=== PATIENT | male | born 1965 | race Caucasian/White ===

== ENCOUNTER 2017-07-23 12:10 | Day surgery (SDC) | payer OTHER ==
[2017-07-23] MEDS: NS 1,000 ML IV (13:04)
[2017-07-23] MEDS ORDERED: PROPOFOL 200 MG/20 ML VIAL As Ordered ×2 (13:05→13:19)
[2017-07-23] MEDS ORDERED: LIDOCAINE 2% INJ 100 MG/5 ML SDV (FOR ANES.) As Ordered (13:05)
== END 2017-07-23 13:53 | disposition home or self-care (01) ==
LOC: M OPP 12:10
DX: R11.2 Nausea with vomiting, unspecified (principal); K22.8 Other specified diseases of esophagus; Z98.84 Bariatric surgery status; Z98.0 Intestinal bypass and anastomosis status; R06.83 Snoring; Z79.899 Other long term (current) drug therapy; Z87.891 Personal history of nicotine dependence
CPT/HCPCS: 43235

== ENCOUNTER → 2019-08-13 | Outpatient (CLI) | payer OTHER, SELFPAY ==
[~2019-08-13] MED LIST: GLUC1CAP10 PO; META58.6 PO; MULT1TAB10 PO; OMEP1CAP73 PO; ONDA-83 PO; TYLE325T5 PO; VITA100L PO
--- NOTE | 2019-08-14 11:22 | REPPI ---
Clinical: Polyarthralgia Technique: Frontal view of the pelvis with neutral and frog lateral views of the right and left hip. Findings: Pelvis is intact and essentially age-appropriate. Bilateral hips demonstrate mild increased sclerosis to the acetabular roof with very subtle early marginal spurring and minimal joint space narrowing. No further overt osteoarthritic degenerative findings noted. No evidence for acute fracture dislocation. Impression: Age-related changes. Symmetric appearance of the bilateral hips. Electronically Signed by Joseph Quezada MD 08/14/2019 02:16 A
--- NOTE | 2019-08-14 11:22 | REPPI ---
Clinical: Polyarthralgia. Technique: AP, lateral, bilateral oblique and sunrise views of the right and left knee. Findings: Right knee demonstrates age-related cortical irregularity to the femoral condyles, increased sclerosis along the tibial plateau, and minimal medial joint space narrowing. No acute fracture or dislocation. No obvious effusion. Left knee demonstrates minimal age-related cortical irregularity to the femoral condyles, mildly increased sclerosis to the medial tibial plateau with mild medial joint space narrowing. No acute fracture or dislocation. No obvious effusion. Impression: Relatively mild arthritic degenerative changes as described above. Electronically Signed by Joseph Quezada MD 08/14/2019 02:29 A
== END ==
LOC: M PLAIMG 14:17
PROVIDERS: ATTEND Internal Medicine
DX: M25.50 Pain in unspecified joint (principal)

== ENCOUNTER → 2019-08-13 | Outpatient (REF) | payer OTHER, SELFPAY ==
[2019-08-16 00:07] LABS: IgG P18 AB Absent (.); IgG P23 AB Absent (.); IgG P28 AB Absent (.); IgG P30 AB Absent (.); IgG P39 AB Absent (.); IgG P41 AB Absent (.); IgG P45 AB Absent (.); IgG P66 AB Absent (.); IgG P93 AB Absent (.); IgM P23 AB Absent (.); IgM P39 AB Absent (.); IgM P41 AB Absent (.); LYME IgG WB INTERPRETATION Negative (.); LYME IgM WB INTERPRETATION Negative (.)
== END ==
LOC: M SFHCRHEU 14:04
PROVIDERS: ATTEND Internal Medicine
DX: A69.20 Lyme disease, unspecified (principal)